=== PATIENT | female | born 1985 | race Hispanic/Latino ===

== ENCOUNTER 2017-03-03 08:43 | Emergency (ER) | payer BC ==
[2017-03-03 09:16] LABS: Bilirubin Negative (Negative); Blood, Urine Negative (Negative); Glucose, Urine (Dipstick) Negative (Negative); Ketone, Urine Negative (Negative); Nitrite Negative (Negative); Protein, Urine (Dipstick) Negative (Neg-Trace); Urobilinogen 0.2 mg/dL (0.2-1.0)
[2017-03-03 09:26] LABS: #Basophils 0.1 thou/uL (0.0-0.2); #Eosinphils 0.1 thou/uL (0.0-0.7); #Lymphocytes 2.5 thou/uL (1.20-3.40); #Monocytes 0.7 thou/uL (0.11-0.59); #Neutrophils 3.4 thou/uL (1.40-6.50); %Basophils 0.9 % (0.0-1.0); %Eosinophils 1.1 % (0.0-10.0); %Lymphocytes 37.6 % (21.0-51.0); %Monocytes 10.3 % (0.0-10.0); Hematocrit 41.9 % (36.0-47.0); Mean Platelet Volume 8.5 fL (7.4-10.4); Red Blood Cell (RBC) Count 4.16 mill/uL (4.20-5.40); White Blood Cell (WBC) Count 6.7 thou/uL (4.8-10.8)
--- NOTE | 2017-03-03 10:26 | ULT ---
PELVIC ULTRASOUND: Comparison: None. History: Abdominal pain. female. Spotting at the beginning of the . Technique: Multiplanar grayscale and color doppler images were obtained in a transvaginal pelvic ult rasound. FINDINGS: There is a gestational sac within the uterus. This gestational sac contains a pole which measu res 0.35 cm. This is consistent with an estimated gestational age of 6 weeks 0 days. A heart r ate was detected at 103 beats/minute. There is a normal appearing yolk sac. There is a small hypoechoic region adjacent to the gestational sac which may represent a small subch orionic hemorrhage measuring 8 mm in greatest dimension. No free fluid is seen in the pelvis. Neithe r ovary was visualized. IMPRESSION: 1. Live intrauterine with estimated age of 6 weeks 0 days. 2. Possible small subchorionic hemorrhage. POS: [facility]
== END 2017-03-03 10:33 | disposition home or self-care (01) ==
LOC: ERS 08:43
DX: O20.0 Threatened abortion (principal); O99.341 Other mental disorders complicating pregnancy, first trimester; F41.9 Anxiety disorder, unspecified; Z3A.01 Less than 8 weeks gestation of pregnancy
CPT/HCPCS: 36415; 76856; 81003; 81025; 84702; 85025; 86900; 86901; 87480; 87491; 87510; 87591; 87660

== ENCOUNTER 2017-07-24 07:39 | Emergency (ER) | payer BC, SELFPAY ==
[2017-07-24 08:20] LABS: #Lymphocytes 2.2 thou/uL (1.20-3.40); #Monocytes 0.8 thou/uL (0.11-0.59); #Neutrophils 4.4 thou/uL (1.40-6.50); %Basophils 0.3 % (0.0-1.0); %Eosinophils 0.6 % (0.0-10.0); %Lymphocytes 29.5 % (21.0-51.0); %Monocytes 10.3 % (0.0-10.0); %Neutrophils 59.3 % (42.0-75.0); Mean Corpuscular HGB CONC 33.2 g/dL (32.0-36.0); Mean Corpuscular Hemoglobin 32.1 pg (27.0-31.0); Mean Corpuscular Volume 96.8 fl (81.0-99.0); Mean Platelet Volume 8.1 fL (7.4-10.4); Platelet Count 259 thou/uL (130-400); RBC Distribution Width 12.2 % (11.5-14.5); Red Blood Cell (RBC) Count 3.73 mill/uL (4.20-5.40); White Blood Cell (WBC) Count 7.4 thou/uL (4.8-10.8)
[2017-07-24 08:41] LABS: ALT (SGPT) 10 U/L (8-55); AST (SGOT) 15 U/L (5-34); Albumin 3.7 g/dL (3.5-5.0); Alkaline Phosphatase 42 U/L (40-150); Anion Gap 12 mmol/L (10-20); BUN (Urea Nitrogen) 11 mg/dL (7.0-18.7); Bilirubin, Total 0.2 mg/dL (0.2-1.2); Calc. Creatinine Clearance 0 mL/min (70-130); Carbon Dioxide 23 mmol/L (22-29); Chloride 109 mmol/L (98-107); Estimated GFR-MDRD Greater than 90; Globulin 2.9 g/dL (2.4-3.5); Glucose 89 mg/dL (70-105); Potassium 4.1 mmol/L (3.5-5.1); Protein, Total 6.6 g/dL (6.0-8.3); Sodium 140 mmol/L (136-145)
[2017-07-24 09:29] LABS: Bilirubin Negative (Negative); Blood, Urine Small (Negative); Clarity CLEAR (Clear); Glucose, Urine (Dipstick) Negative (Negative); Leukocyte Negative (Negative); Nitrite Negative (Negative); Protein, Urine (Dipstick) Negative (Neg-Trace); Specific Gravity, Urine 1.016 (1.002-1.036); Urobilinogen 0.2 mg/dL (0.2-1.0)
[2017-07-24 09:30] LABS: Pregnancy Test - Urine (BHCG) POSITIVE (Negative); Pregu Control Background? CLEAR/WHITE (CLR/WHITE); Pregu Control Bar Appear? YES (CONTROL BAR); Specific Gravity 1.016 (1.002-1.036)
[2017-07-24 09:32] LABS: Bacteria/HPF 1+ HPF (None Seen); Hyaline Casts/LPF 0-3 HYALINE CAST LPF (0-3 Hyaline); Pathc Cast-AUWi Flag 0.13 (0-2.49); RBC/HPF 0-3 HPF (0-3); WBC/HPF 0-3 HPF (0-3); Yeast-AUWi Flag 11.3 (0-25.0)
--- NOTE | 2017-07-24 12:30 | ULT ---
PELVIC ULTRASOUND WITH DOPPLER EVALUATION: INDICATION: Pelvic pain. TECHNIQUE: Davalos scale, color Doppler, and vascular duplex with spectral analysis was performed of the pelvis uti lizing a transabdominal approach. FINDINGS: The uterus measures 9.3 x 6.3 x 7.5 cm. There is a live intrauterine gestation with a gestational sa c, pole, and yolk sac identified. heart tones are noted at 160 b.p.m. A small amount of suspected subchroionic hemorrhage is seen along the cephalad portion of the gestational sac which ma y be related to implantation. This occupies less than 25% of the gestational sac margin. Based on t he crown-rump length, the estimated gestational age by ultrasound is 9 weeks and 0 days, estimated du e date 02/26/18. The visualized aspects of the ovaries appear within normal limits. There is normal flow to both ovaries. The right ovary measured 2.9 x 1.5 x 1.2 cm. The left ovary measured 2.0 x 1. 2 x 1.2 cm. No free fluid is evident. IMPRESSION: 1. Single live intrauterine gestation. 2. A small amount of subchorionic hemorrhage is seen along the cephalad portion of the gestational s ac. This occupies less than 25% of the circumference of the gestational sac. Continued ultrasound a nd clinical followup is recommended. POS: [facility]
== END 2017-07-24 12:06 | disposition home or self-care (01) ==
LOC: ERS 07:39
DX: O20.0 Threatened abortion (principal); F41.9 Anxiety disorder, unspecified; Z3A.09 9 weeks gestation of pregnancy
CPT/HCPCS: 36415; 76856; 80053; 81003; 81015; 81025; 84702; 85025; 86900; 86901; 93976

== ENCOUNTER 2018-01-24 17:38 | Day surgery (SDC) | payer SELFPAY ==
[2018-01-24 18:35] VITALS: BMI 39.2
--- NOTE | 2018-01-24 22:42 | PRG ---
DATE OF SERVICE: 01/24/2018 PRIMARY FIELD NURSE CASE MANAGER: Dr. Robin Borden CHIEF COMPLAINT: Decreased movement. HISTORY OF PRESENT ILLNESS: The patient is a 32-year-old female with an intrauterine at 36 weeks and 5 days, who is presenting to the Labor and Delivery ER with multiple complaints, but her primary complaint is she has felt her baby move less this past day than she normally feels. The patient also reports that she has had 2 days of diarrhea that is now resolving and nausea and vomiti ng at night. The patient reports that she has had a month long history of some right lower quadrant pain that is worse with activity and movement such as getting out of bed, getting up from a chair and walking. The patient reports she has an appointment next Tuesday to see her primary OB. She reports she has not had any complications with this thus far. The patient denies any recent illne ss, headache, fever, fall, chest pain, shortness of breath, any new rashes, vaginal bleeding, leakage of fluid, hip problems, knee problems, muscle weakness, burning with urination. PAST MEDICAL HISTORY: Migraines. PAST SURGICAL HISTORY: Cryotherapy and a LEEP. ALLERGIES: No known drug allergies. MEDICATIONS: vitamins. SOCIAL HISTORY: Denies drug, alcohol or tobacco use. OB HISTORY: The patient had 3 term deliveries and one 8-week miscarriage, diagnosed as a missed AB. OB LABS: Blood type B positive, antibody screen is negative. She is rubella immune. RPR is nonreac tive. GC and chlamydia are negative, hepatitis B surface antigen is nonreactive. HIV is nonreactive . REVIEW OF SYSTEMS: Per HPI. PHYSICAL EXAMINATION: VITAL SIGNS: Blood pressure 119/71, heart rate of 74, respiratory rate of 18, temperature 97.8. GENERAL: She appears to be in no acute distress. She is alert and oriented, cooperative and pleasan t to interact with. HEENT: Normocephalic, atraumatic. LUNGS: Clear to auscultation bilaterally. HEART: Regular rate and rhythm. ABDOMEN: Soft and gravid, nontender. She does have some tenderness with deviation of the uterus to the patient's left recreating some of her pain that she experienced that she has been experiencing th e last month. EXTREMITIES: Nontender, nonedematous. CERVICAL EXAM: Per nursing staff is 1 and 50. heart tracing performed and NST for decreased movement. Baseline is noted to be in the 1 30s with moderate long-term variability, positive 15 x 15 accelerations, no decelerations. Tocometer shows contractions about every 7-10 minutes, mild to the patient, but present. ASSESSMENT AND PLAN: The patient is a 32-year-old female with an intrauterine at 36 weeks and 5 days, who presented with decreased movement and some other vague complaints. Reass urance has been given to the patient with a reactive NST. The patient's nausea and vomiting, and jenn rrhea is resolving spontaneously or mild in nature. The patient's pain has consistent with ligamento us pain that patient is accepting that this is just a part of . She has no evidence of labo r and is being discharged to home. The patient has been given labor precautions and has been asked to call Dr. Borden in the morning to give him an update of how she is doing.
== END 2018-01-24 19:00 | disposition home or self-care (01) ==
LOC: L&D/OP 17:38
PROVIDERS: ATTEND Obstetrics & Gynecology
DX: O36.8130 Decreased fetal movements, third trimester, not applicable or unspecified (principal); O99.89 Other specified diseases and conditions complicating pregnancy, childbirth and the puerperium; R11.2 Nausea with vomiting, unspecified; R19.7 Diarrhea, unspecified; Z3A.36 36 weeks gestation of pregnancy
CPT/HCPCS: 99282; A4353

== ENCOUNTER 2018-01-31 10:40 | Day surgery (SDC) | payer SELFPAY ==
--- NOTE | 2018-01-31 12:53 | PDOC.LDHP ---
Labor and Delivery H&P HPI: Patient of Dr Borden Sent here from Office for labor obs/contractions Location: Triage B HPI: Patient is a 32 yo W SAB1 at 37 weeks 6 days with irregular contractions. No LOF, no VB, no JARAMILLO, good FM. Denies issues. No recent trauma. Review of Systems: Complete ROS performed and as per HPI Current gestational age (weeks): 37 (6 days) Due date: 02/19/18 Dating criteria: last menstrual period Grav: 5 Para: 4 OB History Details: SAB 1 in 2016 at 8 weeks No CS HX Current complications: none Abnormal US findings: No Past Medical History: HX LEEP in 2003 Current medications: pre-eligio vitamins Previous surgical history: other (LEEP) Allergies/Adverse Reactions: Allergies Allergy/AdvReac Type Severity Reaction Status Date / Time No Known Allergies Allergy Verified 01/31/18 11:19 - Physical Exam Vital signs reviewed and normal: yes (112/78 80 18 97.4) General: NAD Heart: RRR Lungs: CTAB Abdomen: gravid Extremeties: no edema FHT: category 1 [place] contractions every: [place] with contractions every 2-3 minutes, but irregular - Vaginal Exam cm dilated: 1 (BOWI) Effacement: 50% Station: -1 - Assessment Latent labor at early term...multip - Plan Plan: observation in L&D (I discussed with her and her partner latent labor. She had membranes swept yesterday in office but no cervical change noted after our brief observation in L&D. L&D instructions given. Baby Cat 1 also reviewed with her.)
[2018-01-31 13:29] VITALS: BMI 37.8
== END 2018-01-31 12:45 | disposition home or self-care (01) ==
LOC: L&D/OP 10:40
PROVIDERS: ATTEND Obstetrics & Gynecology
DX: O47.1 False labor at or after 37 completed weeks of gestation (principal); Z79.899 Other long term (current) drug therapy; Z3A.37 37 weeks gestation of pregnancy
CPT/HCPCS: 99283

== ENCOUNTER 2018-02-03 10:00 | Inpatient (IN) | payer BC, OTHER ==
[~2018-02-03 10:00] MED LIST: Bupivacaine/Epinephrine 0.25% 30 ML VIAL ONE
[2018-02-03] MEDS: Lactated Ringer's 1,000 ML IV SCH ×2 (10:30→13:30)
[2018-02-03] MEDS ORDERED: Docusate 100 MG CAP PO PRN (10:41)
[2018-02-03] MEDS ORDERED: Lidocaine 1% (PF) 30 ML VIAL SC PRN (10:41)
[2018-02-03] MEDS ORDERED: Misoprostol 200 MCG TAB PR PRN (10:41)
[2018-02-03] MEDS ORDERED: NS / Oxytocin 40 units/1000ml 1,000 ML IV PRN (10:41)
[2018-02-03] MEDS ORDERED: Diphenoxylate HCl/Atropine Tablet PO PRN ×2 (10:41)
[2018-02-03] MEDS ORDERED: Ibuprofen 800 MG TAB PO PRN (10:41)
[2018-02-03] MEDS ORDERED: HYDROcodone/Acetaminophen 5/325 mg Tablet PO PRN ×2 (10:41)
[2018-02-03] MEDS ORDERED: Butorphanol Tartrate 1 MG/ML VIAL SLOW IVP PRN (10:41)
[2018-02-03] MEDS ORDERED: Ondansetron HCl/PF 4 MG/2 ML Vial IVP PRN ×2 (10:41→16:41)
[2018-02-03] MEDS ORDERED: Promethazine HCl 25 MG/ML VIAL IM PRN (10:41)
[2018-02-03] MEDS ORDERED: NS w/ Oxytocin 10 units 500 ML IV SCH (10:45)
[2018-02-03 10:50] LABS: Hemoglobin 13.5 g/dL (12.0-16.0); Mean Corpuscular HGB CONC 33.2 g/dL (32.0-36.0); Mean Corpuscular Hemoglobin 32.2 pg (27.0-31.0); Mean Platelet Volume 9.3 fL (7.4-10.4); Platelet Count 250 thou/uL (130-400); RBC Distribution Width 11.8 % (11.5-14.5); Red Blood Cell (RBC) Count 4.19 mill/uL (4.20-5.40); White Blood Cell (WBC) Count 15.9 thou/uL (4.8-10.8)
[2018-02-03 11:19] VITALS: BMI 38.0
[2018-02-03 11:36] LABS: Syphilis Antibody Nonreactive (Nonreactive); Syphilis Antibody Index 0.05 S/CO (<1.00 Non-Reactive)
[2018-02-03 11:37] LABS: HBSAg Index 0.16 S/CO (0-0.99); Hep B Surf Ag Non-Reactive S/CO (NonReactive)
[2018-02-03] MEDS ORDERED: Bupivacaine 0.5% 20 ML, fentaNYL Citrate/PF 400 MCG in Sodium Chloride 0.9% 72 ML EPIDURAL SCH (13:30)
[2018-02-03] MEDS ORDERED: DISCONTINUE ALL PREVIOUS NARCOTICS FS SCH (13:30)
[2018-02-03] MEDS ORDERED: ePHEDrine/0.9% NaCl/PF SYRINGE 50 mg/10 ml SLOW IVP PRN (13:58)
[2018-02-03] MEDS ORDERED: Eucerin (Mineral Oil/Petrolatum,White) 30 gm Jar TOP PRN (13:58)
[2018-02-03] MEDS ORDERED: Naloxone HCl 0.4 mg/ml Vial IVP PRN ×2 (13:58)
[2018-02-03] MEDS ORDERED: Lactated Ringer's 500 ML IV PRN (13:58)
[2018-02-03] MEDS ORDERED: Communication Order-Pharmacy FS SCH (14:00)
[2018-02-03] MEDS ORDERED: fentaNYL Citrate/PF 400 MCG, Bupivacaine 0.5% 20 ML in Sodium Chloride 0.9% 72 ML EPIDURAL SCH (14:00)
[2018-02-03] MEDS ORDERED: NS / Oxytocin 40 units/1000ml 1,000 ML ONE (15:04)
[2018-02-03] MEDS ORDERED: Lidocaine 1% (PF) 30 ML VIAL ONE (15:04)
[2018-02-03] MEDS ORDERED: Acetaminophen/Codeine 30-300mg Tablet PO PRN ×2 (16:41)
[2018-02-03] MEDS ORDERED: Bisacodyl 10 MG SUPP PR PRN (16:41)
[2018-02-03] MEDS ORDERED: Preparation H Ointment 28 GM TUBE PR PRN (16:41)
[2018-02-03] MEDS ORDERED: Benzocaine/Menthol 20-0.5% 60 ML CAN TOP PRN (16:41)
[2018-02-03] MEDS ORDERED: diphenhydrAMINE 25 MG CAP PO PRN (16:41)
[2018-02-03] MEDS ORDERED: Adacel (T-DAP) 0.5 ML VIAL IM ONE (16:41)
[2018-02-03] MEDS ORDERED: Lanolin Ointment 7 GM TUBE TOP PRN (16:41)
[2018-02-03] MEDS ORDERED: Milk Of Magnesia 30 ML UDCUP PO PRN (16:41)
[2018-02-03] MEDS ORDERED: Zolpidem Tartrate 5 MG TAB PO PRN (16:41)
[2018-02-03] MEDS ORDERED: NS / Oxytocin 40 units/1000ml 1,000 ML IV SCH (16:45)
[2018-02-03] MEDS: Docusate Calcium (SURFAK) 240 MG CAP PO SCH (20:09)
[2018-02-03] MEDS: Ibuprofen 800 MG TAB PO SCH (20:09)
[2018-02-03] MEDS: Ferrous Sulfate 325 MG TAB PO SCH (23:42)
[2018-02-04 05:24] LABS: Hemoglobin 11.6 g/dL (12.0-16.0); Mean Corpuscular HGB CONC 33.8 g/dL (32.0-36.0); Mean Corpuscular Hemoglobin 33.2 pg (27.0-31.0); Mean Platelet Volume 8.7 fL (7.4-10.4); Platelet Count 211 thou/uL (130-400); RBC Distribution Width 11.8 % (11.5-14.5); Red Blood Cell (RBC) Count 3.51 mill/uL (4.20-5.40)
[2018-02-04] MEDS: Ibuprofen 800 MG TAB PO SCH ×2 (05:58→13:57)
[2018-02-04] MEDS: Ferrous Sulfate 325 MG TAB PO SCH (08:13)
[2018-02-04] MEDS: Docusate Calcium (SURFAK) 240 MG CAP PO SCH (08:15)
[2018-02-04] MEDS ORDERED: Prenatal Vitamin 1 TAB PO SCH (09:00)
[2018-02-04 15:34] VITALS: BP 118/69; TEMP 97.6
== END 2018-02-04 17:40 | disposition home or self-care (01) | DRG 775 ==
LOC: L&D 10:00 → 3SW 18:50
PROVIDERS: ADMIT Obstetrics & Gynecology; ATTEND Obstetrics & Gynecology
PROC: 10E0XZZ Delivery of Products of Conception, External Approach (ICD-10-PCS; principal; 2018-02-03)
PROC: 10907ZC Drainage of Amniotic Fluid, Therapeutic from Products of Conception, Via Natural or Artificial Opening (ICD-10-PCS; 2018-02-03)
DX: O80 Encounter for full-term uncomplicated delivery (principal); Z3A.38 38 weeks gestation of pregnancy; Z37.0 Single live birth
CPT/HCPCS: 36415; 51702; 85027; 86780; 86850; 86900; 86901; 87340; 90715; J0595; J2001; J3010; J3490; J7050

== ENCOUNTER 2019-04-08 08:45 | Emergency (ER) | payer BC, OTHER, SELFPAY ==
[2019-04-08] MEDS ORDERED: Lidocaine 1% (PF) 30 ML VIAL ONE (09:08)
== END 2019-04-08 10:24 | disposition home or self-care (01) ==
LOC: ERS 08:45
DX: N75.0 Cyst of Bartholin's gland (principal); F41.9 Anxiety disorder, unspecified
CPT/HCPCS: 56420; J2001

== ENCOUNTER 2019-06-25 10:44 | Emergency (ER) | payer BC, SELFPAY | END 2019-06-25 12:16 | disposition home or self-care (01) | LOC: ERS 10:44 | DX: J10.1 Influenza due to other identified influenza virus with other respiratory manifestations (principal); F41.9 Anxiety disorder, unspecified | CPT/HCPCS: 87804; 99283 ==

== ENCOUNTER 2019-08-05 08:50 | Emergency (ER) | payer SELFPAY ==
[2019-08-05] MEDS ORDERED: Ketorolac Tromethamine 30 MG/ML VIAL ONE (09:05)
[2019-08-05 09:28] LABS: #Eosinphils 0.1 thou/uL (0.0-0.7); #Lymphocytes 2.6 thou/uL (1.20-3.40); #Monocytes 0.5 thou/uL (0.11-0.59); %Basophils 0.2 % (0.0-1.0); %Eosinophils 2.3 % (0.0-10.0); %Lymphocytes 41.8 % (21.0-51.0); %Monocytes 7.4 % (0.0-10.0); %Neutrophils 48.4 % (42.0-75.0); Hemoglobin 13.7 g/dL (12.0-16.0); Mean Corpuscular HGB CONC 32.9 g/dL (32.0-36.0); Mean Corpuscular Volume 97.3 fL (78.0-98.0); Mean Platelet Volume 9.8 fL (7.4-10.4); Platelet Count 297 thou/uL (130-400); RBC Distribution Width 12.6 % (11.5-14.5); Red Blood Cell (RBC) Count 4.27 mill/uL (4.20-5.40); White Blood Cell (WBC) Count 6.3 thou/uL (4.8-10.8)
[2019-08-05 09:39] LABS: BHCG - Serum Negative (NEGATIVE); Pregs Control Background? CLEAR/WHITE (CLR/WHITE); Pregs Control Bar Appear? YES (CONTROL BAR)
[2019-08-05 10:06] LABS: Bilirubin Negative (Negative); Blood, Urine Negative (Negative); Glucose, Urine (Dipstick) Negative (Negative); Leukocyte Negative (Negative); Nitrite Negative (Negative); Protein, Urine (Dipstick) Negative (Neg-Trace); Urobilinogen 0.2 mg/dL (Less than 2)
[2019-08-05 10:09] LABS: Clarity Clear (Clear)
[2019-08-05 10:10] LABS: ALT (SGPT) 12 U/L (8-55); AST (SGOT) 19 U/L (5-34); Alkaline Phosphatase 72 U/L (40-110); Anion Gap 15 mmol/L (10-20); BUN (Urea Nitrogen) 10 mg/dL (7.0-18.7); Bilirubin, Total 0.4 mg/dL (0.2-1.2); Calc. Creatinine Clearance 0 mL/min (70-130); Carbon Dioxide 18 mmol/L (22-29); Chloride 108 mmol/L (98-107); Estimated GFR-MDRD Greater than 90; Globulin 3.3 g/dL (2.4-3.5); Glucose 97 mg/dL (70-105); Lipase 21 U/L (8-78); Potassium 5.4 mmol/L (3.5-5.1); Protein, Total 7.3 g/dL (6.0-8.3); Sodium 136 mmol/L (136-145)
--- NOTE | 2019-08-05 10:18 | CT ---
CT abdomen and pelvis noncontrast HISTORY: Flank pain. FINDINGS: No comparison. Each renal collecting system, ureter, and urinary bladder are decompressed. Gallbladder surgically ab sent. Lung bases are clear. Lack of contrast limits evaluation for other abnormalities. No free air or free fluid. No Small lipom a incidentally noted within the posterior aspect of the pancreatic neck. No evidence of bowel obstruction. Appendix not inflamed. IMPRESSION: No CT evidence of urinary tract obstruction or calcification. No significant abnormalitie s are demonstrated.
== END 2019-08-05 10:40 | disposition home or self-care (01) ==
LOC: ERS 08:50
DX: R10.9 Unspecified abdominal pain (principal); R11.2 Nausea with vomiting, unspecified; R19.7 Diarrhea, unspecified; F41.9 Anxiety disorder, unspecified
CPT/HCPCS: 74176; 80053; 81003; 83690; 84703; 85025; 96361; 96374; J1885

== ENCOUNTER 2022-08-03 05:05 | Emergency (ER) | payer BC ==
[2022-08-03] MEDS ORDERED: Ketorolac Tromethamine 30 MG/ML VIAL ONE (07:16)
== END 2022-08-03 09:52 | disposition home or self-care (01) ==
LOC: ERS 05:05
DX: R51.9 Headache, unspecified (principal); J06.9 Acute upper respiratory infection, unspecified; Z20.822 Contact with and (suspected) exposure to COVID-19
CPT/HCPCS: 93005; 96372; J1885; U0003; U0005

== ENCOUNTER 2023-01-25 20:15 | Emergency (ER) | payer BC ==
[2023-01-25] MEDS ORDERED: Guaifenesin DM 100-10/5 ML UDCUP PO SCH (20:45)
== END 2023-01-25 21:49 | disposition home or self-care (01) ==
LOC: ERS 20:15
DX: R05.9 Cough, unspecified (principal); F17.210 Nicotine dependence, cigarettes, uncomplicated
CPT/HCPCS: 71045; 99283

== ENCOUNTER 2023-02-20 12:51 | Emergency (ER) | payer BC, OTHER, SELFPAY | END 2023-02-20 13:30 | disposition home or self-care (01) | LOC: ERS 12:51 | DX: S29.011A Strain of muscle and tendon of front wall of thorax, initial encounter (principal); F17.210 Nicotine dependence, cigarettes, uncomplicated; X50.0XXA Overexertion from strenuous movement or load, initial encounter; Z79.899 Other long term (current) drug therapy | CPT/HCPCS: 71045 ==

== ENCOUNTER 2023-05-21 16:26 | Emergency (ER) | payer BC, OTHER ==
[2023-05-21] MEDS ORDERED: Albuterol 2.5 MG (3 mL) NEB ONE (16:37)
[2023-05-21] MEDS ORDERED: Ipratropium Bromide 2.5 ml Neb ONE (16:37)
[2023-05-21 17:02] LABS: #Basophils 0.1 thou/uL (0.0-0.2); #Eosinphils 1.2 thou/uL (0.0-0.7); #Monocytes 0.9 thou/uL (0.11-0.59); #Neutrophils 4.3 thou/uL (1.40-6.50); %Basophils 0.5 % (0.0-1.0); %Eosinophils 10.9 % (0.0-10.0); %Monocytes 7.8 % (0.0-10.0); %Neutrophils 39.6 % (42.0-75.0); Hematocrit 42.4 % (36.0-47.0); Hemoglobin 14.1 g/dL (12.0-16.0); Mean Corpuscular HGB CONC 33.3 g/dL (32.0-36.0); Mean Corpuscular Hemoglobin 30.9 pg (27.0-31.0); Mean Corpuscular Volume 92.8 fl (78.0-98.0); Mean Platelet Volume 11.3 fL (7.4-10.4); Platelet Count 459 10x3/uL (130-400); RBC Distribution Width 13.1 % (11.5-14.5); Red Blood Cell (RBC) Count 4.57 mill/uL (4.20-5.40); White Blood Cell (WBC) Count 10.9 10x3/uL (4.8-10.8)
[2023-05-21 17:14] LABS: ALT (SGPT) 30 U/L (8-55); AST (SGOT) 23 U/L (5-34); Albumin 4.4 g/dL (3.5-5.0); Alkaline Phosphatase 66 U/L (40-110); Anion Gap 13 mmol/L (10-20); BUN (Urea Nitrogen) 8 mg/dL (7.0-18.7); Bilirubin, Total 0.4 mg/dL (0.2-1.2); Calc. Creatinine Clearance 0 mL/min (70-130); Calcium 9.3 mg/dL (7.8-10.44); Carbon Dioxide 25 mmol/L (22-29); Chloride 106 mmol/L (98-107); Estimated GFR 93; Globulin 3.6 g/dL (2.4-3.5); Glucose 93 mg/dL (70-105); Potassium 3.6 mmol/L (3.5-5.1); Sodium 140 mmol/L (136-145)
[2023-05-21 17:17] LABS: Troponin I Less than 0.010 ng/mL (< 0.028)
== END 2023-05-21 18:50 | disposition home or self-care (01) ==
LOC: ERS 16:26
DX: R06.2 Wheezing (principal); F17.210 Nicotine dependence, cigarettes, uncomplicated
CPT/HCPCS: 71045; 80053; 84484; 85025; 93005; 94644; J7611

== ENCOUNTER 2023-06-17 05:41 | Emergency (ER) | payer BC ==
[2023-06-17] MEDS ORDERED: Ipratropium Bromide 2.5 ml Neb ONE ×2 (05:48→07:46)
[2023-06-17] MEDS ORDERED: Albuterol 2.5 MG (3 mL) NEB ONE (05:48)
[2023-06-17] MEDS ORDERED: Magnesium 2 GM/50 ML BAG (IN WATER) ONE (05:56)
[2023-06-17] MEDS ORDERED: methylPREDNISolone Sod Succ/PF 125 MG/2 ML VIAL ONE (05:56)
[2023-06-17 07:14] LABS: #Eosinphils 0.5 thou/uL (0.0-0.7); #Monocytes 0.8 thou/uL (0.11-0.59); #Neutrophils 6.7 thou/uL (1.40-6.50); %Basophils 0.3 % (0.0-1.0); %Lymphocytes 32.5 % (21.0-51.0); %Monocytes 6.8 % (0.0-10.0); %Neutrophils 55.9 % (42.0-75.0); Hematocrit 45.2 % (36.0-47.0); Hemoglobin 14.8 g/dL (12.0-16.0); Mean Corpuscular HGB CONC 32.7 g/dL (32.0-36.0); Mean Corpuscular Hemoglobin 30.8 pg (27.0-31.0); Mean Platelet Volume 11.7 fL (7.4-10.4); Platelet Count 386 10x3/uL (130-400); RBC Distribution Width 13.2 % (11.5-14.5); Red Blood Cell (RBC) Count 4.81 mill/uL (4.20-5.40)
[2023-06-17 07:42] LABS: ALT (SGPT) 32 U/L (8-55); AST (SGOT) 27 U/L (5-34); Albumin 4.2 g/dL (3.5-5.0); Alkaline Phosphatase 61 U/L (40-110); Anion Gap 13 mmol/L (10-20); BUN (Urea Nitrogen) 13 mg/dL (7.0-18.7); Bilirubin, Total 0.4 mg/dL (0.2-1.2); Calc. Creatinine Clearance 0 mL/min (70-130); Calcium 9.4 mg/dL (7.8-10.44); Carbon Dioxide 25 mmol/L (22-29); Chloride 106 mmol/L (98-107); Estimated GFR 109; Globulin 3.4 g/dL (2.4-3.5); Glucose 96 mg/dL (70-105); Potassium 3.9 mmol/L (3.5-5.1); Protein, Total 7.6 g/dL (6.0-8.3); Sodium 140 mmol/L (136-145)
[2023-06-17] MEDS ORDERED: Albuterol 2.5 MG (0.5 mL) NEB ONE (07:47)
[2023-06-17 08:09] LABS: Pregnancy Test - Urine (BHCG) Negative (Negative); Pregu Control Background? CLEAR/WHITE (CLR/WHITE); Pregu Control Bar Appear? YES (CONTROL BAR); Specific Gravity 1.011 (1.002-1.036)
== END 2023-06-17 09:31 | disposition home or self-care (01) ==
LOC: ERS 05:41
DX: J45.901 Unspecified asthma with (acute) exacerbation (principal); Z79.899 Other long term (current) drug therapy
CPT/HCPCS: 80053; 81025; 85025; 96361; 96365; 96375; J2930; J3475; J7611